=== PATIENT | male | born 1975 | race Caucasian/White ===

== ENCOUNTER 2016-08-15 20:38 | Emergency (ER) | payer OTHER ==
--- NOTE | 2016-08-15 21:09 | Emergency Department Record ---
History of Present Illness - General Chief Complaint: Cough Stated Complaint: COUGH, CHEST DISCOMFORT,SOAR THROAT Time Seen by Provider: 08/15/16 21:05 Source: Patient Mode of Arrival: Ambulatory Limitations: No limitations - History of Present Illness Initial Comments: 41 yo male presents to ED with a 5-day history of cough and congestion symptoms as well as fevers and body aches. Patient reports using Mucinex and OTC medications for his symptoms without improvement. Patient denies previous history of COPD or asthma, and denies health problems at her baseline. MD Complaint: Cough Onset/Timin -: Days(s) Severity: Moderate Consistency: Intermittent Improves With: Nothing Worsens With: Nothing Associated Symptoms: Denies other symptoms Treatments Prior to Arrival: "Cold medicine" - Related Data Home Medications Medication Instructions Recorded Confirmed Last Taken Fluoxetine HCl [Prozac] 20 mg PO DAILY 08/15/16 08/15/16 08/15/16 Previous Rx's Medication Instructions Recorded Albuterol Sulfate [Proair 90 mcg IH Q2H PRN #1 [email or web address] 08/15/16 Respiclick] Azithromycin [Zithromax] 250 mg PO DAILY #4 tablet 08/15/16 Prednisone [Prednisone 20Mg] 20 mg PO TID #12 tab 08/15/16 Allergies Allergy/AdvReac Type Severity Reaction Status Date / Time No Known Drug Allergies Allergy Verified 08/15/16 20:45 Travel Screening - Travel/Exposure Within Last 30 Days Have you traveled within the last 30 days?: No - Travel Symptoms Symptom Screening: Fever (Subjective) Review of Systems Constitutional: Reports: Fever, Malaise. Denies: Chills, Night sweats Eyes: Denies: Eye discharge, Eye pain ENT: Reports: Congestion. Denies: Ear pain, Epistaxis Respiratory: Reports: Cough. Denies: Dyspnea Cardiovascular: Denies: Chest pain, Dyspnea on exertion Endocrine: Denies: Fatigue, Heat or cold intolerance Gastrointestinal: Denies: Abdominal pain, Nausea, Vomiting Genitourinary: Denies: Incontinence, Retention Musculoskeletal: Denies: Arthralgia, Back pain, Gout, Joint swelling Skin: Denies: Bruising, Change in color Neurological: Denies: Abnormal gait, Confusion, Headache, Seizure Psychiatric: Denies: Anxiety Hematological/Lymphatic: Denies: Anemia, Blood Clots Past Medical History - SOCIAL HISTORY Smoking Status: Current some day smoker Alcohol Use: Heavy Drug Use: None - RESPIRATORY Hx Respiratory Disorders: No - CARDIOVASCULAR Hx Cardio Disorders: No - NEURO Hx Neuro Disorders: No - GI Hx GI Disorders: No - Hx Genitourinary Disorders: No - ENDOCRINE Hx Endocrine Disorders: No - MUSCULOSKELETAL Hx Musculoskeletal Disorders: No - PSYCH Hx Psych Problems: Yes Hx Depression: Yes - HEMATOLOGY/ONCOLOGY Hx Hematology/Oncology Disorders: No Family Medical History Any Significant Family History?: No Family Hx Comment (NOT TO BE USED IN PLACE OF ITEMS BELOW): denies Physical Exam - General General Appearance: Alert, Oriented x3, Cooperative, Mild distress Limitations: No limitations - Head Head exam: Atraumatic, Normocephalic, Normal inspection Head exam detail: negative: Abrasion, Contusion, Ji's sign, General tenderness, Hematoma, Laceration - Eye Eye exam: Normal appearance. negative: Conjunctival injection, Periorbital swelling, Periorbital tenderness, Scleral icterus - ENT Ear exam: negative: Auricular hematoma, Auricular trauma Nasal Exam: negative: Active bleeding, Discharge, Dried blood, Foreign body Mouth exam: negative: Drooling, Laceration, Muffled voice, Tongue elevation - Neck Neck exam: Normal inspection. negative: Meningismus, Tenderness - Respiratory Respiratory exam: Decreased breath sounds. negative: Rales, Respiratory distress, Rhonchi, Stridor - Cardiovascular Cardiovascular Exam: Regular rate, Normal rhythm, Normal heart sounds - GI/Abdominal GI/Abdominal exam: Soft. negative: Rebound, Rigid, Tenderness - Rectal Rectal exam: Deferred - exam: Deferred - Extremities Extremities exam: Normal inspection. negative: Pedal edema, Tenderness - Back Back exam: Denies: CVA tenderness (R), CVA tenderness (L) - Neurological Neurological exam: Alert, Normal gait, Oriented X3 - Psychiatric Psychiatric exam: Normal affect, Normal mood - Skin Skin exam: Normal color. negative: Abrasion Type of lesion: negative: abrasion Course Vital Signs 08/15/16 20:52 Temperature 98.4 F Pulse Rate 93 H Respiratory 20 Rate Blood Pressure 129/97 Pulse Ox 96 - Reevaluation(s) Reevaluation #1: 08/15/16 21:49 CXR: No acute process Patient reassessed, reports that his symptoms are improved following Duoneb. Patient appears stable for discharge on Zithromax, Prednisone, and Albuterol for his bronchitis symptoms. Patient agrees with the plan as discussed. Disposition Disposition: Discharge Clinical Impression: Bronchitis Disposition: Home, Self-Care Condition: (2) Stable Instructions: Acute Bronchitis (ED) Additional Instructions: Return to ED if your symptoms worsen or if you have any concerns. Zithroma, Prednisone, and Albuterol as directed. Follow-up with your family doctor in 3-5 days as directed. Prescriptions: Albuterol Sulfate [Proair Respiclick] 90 mcg IH Q2H PRN #1 aer.pow.ba PRN Reason: Dyspnea Azithromycin [Zithromax] 250 mg PO DAILY #4 tablet Prednisone [Prednisone 20Mg] 20 mg PO TID #12 tab Forms: Patient Portal Access Time of Disposition: 21:57
[2016-08-15] MEDS: IPRATROPIUM/ALBUTEROL (0.5MG/3MG) NEB INH ONE (21:18)
[2016-08-15] MEDS: PREDNISONE 20 MG TAB PO ONE (22:08)
[2016-08-15] MEDS: AZITHROMYCIN 500 MG TABLET PO ONE (22:08)
--- NOTE | 2016-08-16 15:01 | RADIOLOGY REPORT ---
EXAM: CHEST, TWO VIEWS HISTORY: COUGH GETTING WORSE THE PAST TWO DAYS. TECHNIQUE: PA and lateral views of the chest were obtained. Comparison: None. FINDINGS: The heart size is within normal limits. The lungs appear expanded with no acute infiltrate seen. No pleural effusion or pneumothorax evident. Minor spurring in the spine. IMPRESSION: MINOR SPURRING IN THE SPINE. NO ACUTE INFILTRATE EVIDENT. JOB NUMBER: [id number] MTDD
== END 2016-08-15 22:12 | disposition home or self-care (01) ==
LOC: ER 20:38
DX: J20.9 Acute bronchitis, unspecified (principal); J02.9 Acute pharyngitis, unspecified; R07.9 Chest pain, unspecified
CPT/HCPCS: 99283 ×2; 71020; 94640; J7512

== ENCOUNTER 2017-06-11 08:44 | Emergency (ER) | payer BC, OTHER ==
[2017-06-11] MEDS ORDERED: ASPIRIN 81 MG CHEWABLE TABLET PO ONE (09:06)
--- NOTE | 2017-06-11 09:07 | Emergency Department Record ---
History of Present Illness - General Chief Complaint: Chest Pain Stated Complaint: CHEST DISCOMFORT Time Seen by Provider: 06/11/17 09:01 Source: Patient, RN notes reviewed Mode of Arrival: Ambulatory - History of Present Illness Initial Comments: chest pressure yesterday at work and at home last night and under lot of stress at work. He did have a cough 2-3 weeks ago and some lingering coughs. No chest pain now. Onset/Timin -: Days(s) Onset: Other Pain Location: Substernal Consistency: Now resolved Context: Recent illness Anginal Symptoms: Other - Related Data Allergies Allergy/AdvReac Type Severity Reaction Status Date / Time No Known Drug Allergies Allergy Verified 08/15/16 20:45 Travel Screening - Travel/Exposure Within Last 30 Days Have you traveled within the last 30 days?: Yes Location Detail:: [place] - Travel/Exposure Within Last Year Have you traveled outside the [place] in the last year?: No - Additonal Travel Details Have you been exposed to anyone with a communicable illness?: No - Travel Symptoms Symptom Screening: None Review of Systems Reviewed: No additional complaints except as noted below Constitutional: Reports: As per HPI. Denies: Chills, Fever, Malaise, Night sweats, Weakness, Weight change Eyes: Reports: As per HPI. Denies: Eye discharge, Eye pain, Photophobia, Vision change ENT: Reports: As per HPI. Denies: Congestion, Dental pain, Ear pain, Epistaxis , Hearing loss, Throat pain Respiratory: Reports: As per HPI. Denies: Cough, Dyspnea, Hemoptysis, Stridor, Wheezes Cardiovascular: Reports: As per HPI. Denies: Arrhythmia, Chest pain, Dyspnea on exertion, Edema, Murmurs, Orthopnea, Palpitations, Paroxysmal nocturnal dyspnea, Rheumatic Fever, Syncope Endocrine: Reports: As per HPI. Denies: Fatigue, Heat or cold intolerance, Polydipsia, Polyuria Gastrointestinal: Reports: As per HPI. Denies: Abdominal pain, Constipation, Diarrhea, Hematemesis, Hematochezia, Melena, Nausea, Vomiting Genitourinary: Reports: As per HPI. Denies: Dysuria, Frequency, Hematuria, Incontinence, Retention, Testicular pain, Testicular mass, Urgency Musculoskeletal: Reports: As per HPI. Denies: Arthralgia, Back pain, Gout, Joint swelling, Myalgia, Neck pain Skin: Reports: As per HPI. Denies: Bruising, Change in color, Change in hair/ nails, Lesions, Pruritus, Rash Neurological: Reports: As per HPI. Denies: Abnormal gait, Confusion, Headache, Numbness, Paresthesias, Seizure, Tingling, Tremors, Vertigo, Weakness Psychiatric: Reports: As per HPI. Denies: Anxiety, Auditory hallucinations, Depression, Homicidal thoughts, Suicidal thoughts, Visual hallucinations Hematological/Lymphatic: Reports: As per HPI. Denies: Anemia, Blood Clots, Easy bleeding, Easy bruising, Swollen glands Past Medical History - SOCIAL HISTORY Smoking Status: Current some day smoker Alcohol Use: Heavy Alcohol Use Comment: 4-5 drinks daily Drug Use: None - RESPIRATORY Hx Respiratory Disorders: Yes Hx Sleep Apnea: Yes Hx of CPAP: Yes - CARDIOVASCULAR Hx Cardio Disorders: No - NEURO Hx Neuro Disorders: No - GI Hx GI Disorders: No - Hx Genitourinary Disorders: No - ENDOCRINE Hx Endocrine Disorders: No - MUSCULOSKELETAL Hx Musculoskeletal Disorders: No - PSYCH Hx Psych Problems: Yes Hx Depression: Yes - HEMATOLOGY/ONCOLOGY Hx Hematology/Oncology Disorders: No Family Medical History Any Significant Family History?: No Family Hx Comment (NOT TO BE USED IN PLACE OF ITEMS BELOW): denies Hx Heart Disease: Father, Mother Hx Stroke: Mother Physical Exam - General General Appearance: Alert, Oriented x3, Cooperative, No acute distress - Head Head exam: Normal inspection - Eye Eye exam: Normal appearance, PERRL Pupils: Normal accommodation - ENT ENT exam: Normal exam, Mucous membranes moist, Normal external ear exam, Normal orophraynx, TM's normal bilaterally Ear exam: Normal external inspection. negative: External canal tenderness Nasal Exam: Normal inspection. negative: Discharge, Sinus tenderness Mouth exam: Normal external inspection, Tongue normal Teeth exam: Normal inspection. negative: Dental caries Throat exam: Normal inspection. negative: Tonsillar erythema, Tonsillar exudate - Neck Neck exam: Normal inspection, Full ROM. negative: Tenderness - Respiratory Respiratory exam: Normal lung sounds bilaterally. negative: Respiratory distress - Cardiovascular Cardiovascular Exam: Regular rate, Normal rhythm, Normal heart sounds - GI/Abdominal GI/Abdominal exam: Soft, Normal bowel sounds. negative: Tenderness - Rectal Rectal exam: Deferred - exam: Deferred - Extremities Extremities exam: Normal inspection, Full ROM, Normal capillary refill. negative: Tenderness - Back Back exam: Reports: Normal inspection, Full ROM. Denies: Muscle spasm, Rash noted, Tenderness - Neurological Neurological exam: Alert, Normal gait, Oriented X3, Reflexes normal - Psychiatric Psychiatric exam: Normal affect, Normal mood - Skin Skin exam: Dry, Intact, Normal color, Warm Course Vital Signs 06/11/17 08:56 Temperature 98.6 F Pulse Rate 87 Respiratory 18 Rate Blood Pressure 142/96 Pulse Ox 98 Medical Decision Making - Data Complexity MDM Data: Labs Ordered and/or Reviewed, X-Ray Ordered and/or Reviewed (chest xray negative), EKG Ordered and/or Reviewed (No acute changes) - Lab Data Result diagrams: 06/11/17 09:00 06/11/17 09:00 Disposition Clinical Impression: Chest wall pain Disposition: Home, Self-Care Condition: (1) Good Instructions: Costochondritis (ED) Additional Instructions: follow up with Dr. Cameron in 5 days and may need a stress test tylenol for pain Forms: Patient Portal Access Time of Disposition: 10:13 (`) Quality - Quality Measures Quality Measures: N/A - Blood Pressure Screening Does Patient Have Any of the Following: No Blood Pressure Classification: Hypertensive Reading Systolic Measurement: 142 Diastolic Measurement: 96 Screening for High Blood Pressure: < Pre-Hypertensive BP, F/U Documented > [ [id number]] Pre-Hypertensive Follow-up Interventions: Referral to alternative/primary care provider.
[2017-06-11 09:22] LABS: BASO % 0.7 % (0-6); EOS % 1.3 % (0-6); HEMATOCRIT 45.5 % (42.0-52.0); HEMOGLOBIN 15.9 gm/dl (14.0-18.0); LYMPH % 29.4 % (16-45); MEAN CELL VOLUME 89.7 fl (81-97); MEAN CORPUSCULAR HEMOGLOBIN 31.4 pg (27-33); MEAN CORPUSCULAR HGB CONC 34.9 g/dl (32-36); MEAN PLATELET VOLUME 9.5 fl (7.4-10.4); MONO % 5.6 % (0-9); PLATELET COUNT 222 K/uL (130-400); RED BLOOD COUNT 5.07 M/uL (4.40-5.70); RED CELL DISTRIBUTION WIDTH 12.8 % (11.5-14.5); WHITE BLOOD COUNT W/O DIFF 5.4 K/uL (4.2-12.2)
[2017-06-11 09:32] LABS: BLOOD UREA NITROGEN 19 mg/dL (6-20); CREATININE 0.9 mg/dL (0.7-1.2); EST GLOMERULAR FILTRATION RATE > 60 mL/min
[2017-06-11 09:35] LABS: GLUCOSE,RANDOM 139 mg/dL (74-109)
[2017-06-11 09:39] LABS: CKMB 1.8 ng/mL (<6.73)
--- NOTE | 2017-06-12 09:50 | RADIOLOGY REPORT ---
EXAM: CHEST, TWO VIEWS HISTORY: CHEST PAIN SINCE YESTERDAY, IT FEELS LIKE HEART WORKING HARDER THAN NORMAL. TECHNIQUE: PA and lateral views of the chest were obtained. Comparison: Two view chest 08/15/16. FINDINGS: The heart size is within normal limits. No acute infiltrate identified. No pleural effusion or pneumothorax evident. IMPRESSION: THE CHEST APPEARS ESSENTIALLY NEGATIVE WITH NO ACUTE INFILTRATE IDENTIFIED. JOB NUMBER: [id number] MTDD
== END 2017-06-11 10:29 | disposition home or self-care (01) ==
LOC: ER 08:44
DX: R07.89 Other chest pain (principal); R05 Cough; F17.210 Nicotine dependence, cigarettes, uncomplicated
CPT/HCPCS: 71046; 80048; 82553; 84484; 85025; 85730; 93005; 93010; 99284